=== PATIENT | female | born 1990 | race Caucasian/White ===

== ENCOUNTER 2017-07-12 19:43 | Emergency (ER) | payer MEDICAID, OTHER ==
[~2017-07-12] VITALS: Ht 152.4 cm; Wt 68.0 kg
[~2017-07-12 19:43] MED LIST: PREN1TAB49 PO
[2017-07-12 19:58] VITALS: Ht 152.4 cm; Wt 68.0 kg
[2017-07-12] MEDS ORDERED: CIPR500T4 PO (22:38)
[2017-07-12] MEDS ORDERED: DIPHTH/TET/ACEL PERTUSS (ADULT) 0.5 ML VIAL IM* ONE (23:00)
[2017-07-12 23:08] VITALS: BP 125/79; PULSE 79; RESP 18; TEMP 98
--- NOTE | 2017-07-13 01:35 | ERD ---
ER Documentation Chief Complaint Date/Time DATE: 07/13/17 TIME: 01:33 Chief Complaint punctured wound right big toe HPI This patient is a 27-year-old female presenting to the emergency department with complaints of right great toe puncture wound with a shawn nail at her apartment [place]. The patient states that the nail went through her shoe into her foot and there was some blood present but she washed out with soap and water. She has no pain. Tetanus is not up-to-date. She denies fevers, chills , other injuries, or other symptoms at this time. ROS All systems reviewed and are negative except as per history of present illness. Medications Home Meds Active Scripts Ciprofloxacin Hcl* (Ciprofloxacin Hcl*) 500 Mg Tablet, 500 MG PO BID for 5 Days , #10 TAB Prov:IVAN GAVIRIA PA-C 07/12/17 Reported Medications Vits W-Ca,Fe,Fa(<1MG) () 1 Tab Tablet, 1 TAB PO DAILY, #1 05/10/12 Allergies Allergies: Coded Allergies: codeine (Verified Allergy, Severe, Difficulty breathing, 08/11/15) PMhx/Soc History of Surgery: Yes (C SECTION X 3 ) Hx Respiratory Disorders: Yes (asthma) Hx Alcohol Use: No Hx Substance Use: No Hx Tobacco Use: No Smoking Status: Never smoker Physical Exam Vitals Vital Signs Date Time Temp Pulse Resp B/P Pulse Ox O2 Delivery O2 Flow Rate FiO2 07/12/17 23:08 98.0 79 18 125/79 100 Room Air 07/12/17 19:58 97.8 78 20 131/80 100 Physical Exam Const: Nontoxic, well-appearing female in no acute distress. Head: Atraumatic Eyes: Normal Conjunctiva ENT: Normal External Ears, Nose and Mouth. Neck: Full range of motion..~ No meningismus. Skin: No puncture wound noted to the plantar surface of the right foot. Back: No midline or flank tenderness Ext: No cyanosis, or edema Neur: Awake and alert Psych: Normal Mood and Affect Results 24 hrs Current Medications Medications (Trade) Dose Ordered Sig/Toro Route PRN Reason Start Time Stop Time Status Last Admin Dose Admin Diphtheria/ Tetanus/Acell Pertussis (Adacel) 0.5 ml ONCE ONCE IM* 07/12/17 23:00 07/12/17 23:01 DC 07/12/17 22:43 Procedures/MDM 27-year-old female presents to the emergency department with complaints of puncture wound to the right great toe. There is no puncture wound seen on exam. Tetanus is not up-to-date and so was updated in the department. The patient is stable for outpatient management with a prescription for Cipro to cover for Pseudomonas infection of the skin. The patient was breast-feeding and so she was advised to pump and dump for at least 3 days post finishing the treatment course of the ciprofloxacin. She understands the discharge plan a diagnosis and agrees. All questions and concerns were addressed. Close follow- up with a primary care physician is advised. Strict ER return precautions were discussed. Departure Diagnosis: Primary Impression: Puncture wound Condition: Fair Patient Instructions: Puncture Wound, General Additional Instructions: Pump and dump breast feeding for 3 days after finishing antibiotics. Follow up with your PCP within the next 1-3 days for a repeat evaluation. If you require a referral to a specialist, your Primary Care Provider may be able to provide this for you. In most patient cases, a referral is not required. If you have further questions regarding this matter, please ask your Primary Care Provider. Return the the emergency department immediately if symptoms worsen or change. If you have any questions regarding medications, ask your pharmacist or us before you leave. If any adverse reactions, occur while taking your medications, discontinue the treatment and return to the emergency department immediately. If any new or worsening symptoms, uncontrolled fevers, or other unexplained symptoms occur, return to the emergency department immediately. Take your medications as directed, and complete the entire course of treatment. IVAN GAVIRIA PA-C Jul 13, 2017 01:35
== END 2017-07-12 23:09 | disposition home or self-care (01) ==
LOC: FTE 19:43
DX: S91.131A Puncture wound without foreign body of right great toe without damage to nail, initial encounter (principal); J45.909 Unspecified asthma, uncomplicated; W45.0XXA Nail entering through skin, initial encounter; Y92.9 Unspecified place or not applicable; Z23 Encounter for immunization
CPT/HCPCS: 90471; 90715; Z7502

== ENCOUNTER 2018-04-23 17:57 | Emergency (ER) | END 2018-04-23 21:50 | disposition home or self-care (01) ==